=== PATIENT | male | born 1965 | race Caucasian/White ===

== ENCOUNTER 2018-09-21 08:24 | Emergency (ER) | payer OTHER ==
[2018-09-21] MEDS ORDERED: NA CHLORIDE 0.9% 1,000 ML ONE (09:12)
[2018-09-21] MEDS ORDERED: DIAZEPAM 10 MG/2 ML INJ SYRINGE ONE (09:14)
[2018-09-21 09:18] LABS: Absolute Lymphocytes (CBC) 0.9 K/uL (0.7-4.9); Absolute Monocytes 0.4 K/uL (0.1-1.3); Absolute Neutrophil 7.4 K/uL (1.8-8.0); Basophils % 0.4 % (0-1.3); Eosinophils % 0.4 % (0-4.4); Lymphocytes % 10.1 % (15.3-44.8); MCH 30.9 pg (27.0-35.0); MCV 91.1 fL (80-100); MPV 9.5 fL (7.6-11.3); Monocytes % 5.1 % (3.3-12.3); RBC Red Blood Cell Count 4.72 M/uL (4.33-5.43)
[2018-09-21 09:34] LABS: Albumin 3.9 g/dL (3.4-5.0); Bilirubin Direct 0.1 mg/dL (0-0.2); Bilirubin Total 0.4 mg/dL (0.2-1.0); Potassium 3.6 mmol/L (3.5-5.1); Protein, Total 7.1 g/dL (6.4-8.2)
--- NOTE | 2018-09-21 09:40 | RAD REPORT ---
EXAM DESCRIPTION: CT - Stone Protocol - 09/21/2018 9:19 am CLINICAL HISTORY: Abdominal pain, flank pain and back pain COMPARISON: None. TECHNIQUE: Axial 3 mm thick images were obtained without oral or IV contrast. The [id number] span s the entirety of the system including uppermost abdomen and lung bases. Sagittal and coronal refo rmatted images were generated and reviewed. All CT scans are performed using dose optimization technique as appropriate and may include automated exposure control or mA/KV adjustment according to patient size. FINDINGS: No hydronephrosis is present and no obstructing ureteral calculi. No suspicious renal mass es. There is a 12 millimeter round low-density mass in the medial upper right pole of the kidney almo st certainly a benign cyst. Isodense masses and pyelonephritis are not excluded on a stone protocol C T scan. Partially filled urinary bladder shows no suspicious finding. Prostate gland and seminal vesi cles are normal range. Imaged portions of the liver, spleen and pancreas show no suspicious findings on non-contrast imaging . No gallbladder or biliary tree abnormality identified. No suspicious adrenal finding. Liver attenua tion is borderline fatty infiltrated. No suspicious bowel findings. Appendix is normal. Rare diverticula noted. Patient has a very small umbilical hernia. No mass or bulky lymphadenopathy. No free air, free fluid or inflammatory stranding. No significant bony abnormality. Patient has degenerative disc disease at L5-S1. Mild lower lumbar fa cet degenerative changes are present. No acute lung base finding. IMPRESSION: No hydronephrosis, obstructing calculus or acute finding. Small 12 mm low-density mas s upper pole right kidney is almost certainly a benign cyst. Isodense masses and pyelonephritis are not excluded on stone protocol technique. Remainder the study shows no acute or suspicious finding.
--- NOTE | 2018-09-21 10:50 | EDPHYS ---
Physician Documentation [facility] Name: Stan Joshi Age: 52 yrs Sex: Male : 1965 Arrival Date: 09/21/2018 Time: 08:26 Bed 13 Private MD: ED Physician Alfonso Reece HPI: 09/21 08:29 This 52 yrs old Male presents to ER via Unassigned with complaints of right cp side low back pain. 08:29 The patient presents with pain that is acute. The symptoms are located in the right mid cp back and right low back. The pain does not radiate. The problem was sustained mild pain started after drive to [place] 3 days ago. 08:30 Associated signs and symptoms: Pertinent negatives: abdominal pain, chest pain, cp constipation, fever, hematuria, incontinence, numbness, urinary retention, weakness. 08:30 Severity of symptoms: in the emergency department the symptoms have improved, cp moderately. Historical: - Allergies: 08:32 No Known Allergies; ss - Home Meds: 08:35 Crestor oral oral [Active]; rb1 - PMHx: 08:32 High Cholesterol; ss - PSHx: 08:35 None; rb1 - Immunization history:: Adult Immunizations up to date. - Social history:: Smoking status: Patient/guardian denies using tobacco. - Ebola Screening: : Patient denies exposure to infectious person Patient denies travel to an Ebola-affected area in the 21 days before illness onset. ROS: 08:30 Eyes: Negative for injury, pain, redness, and discharge. cp 08:30 Constitutional: Negative for body aches, chills, fever, poor PO intake. 08:30 ENT: Negative for drainage from ear(s), ear pain, sore throat, difficulty swallowing, difficulty handling secretions. 08:30 Cardiovascular: Negative for chest pain, edema, palpitations. 08:30 Respiratory: Negative for cough, shortness of breath, wheezing. 08:30 Abdomen/GI: Negative for abdominal pain, nausea, vomiting, and diarrhea, constipation, black/tarry stool, rectal bleeding, bowel incontinence. 08:30 Back: Positive for pain at rest, pain with movement, of the right mid back and right low back. 08:30 : Negative for urinary symptoms, difficulty urinating, bladder incontinence, testicular pain 08:30 Skin: Negative for cellulitis, rash. 08:30 Neuro: Negative for altered mental status, dizziness, headache, numbness, tingling, weakness. 08:30 All other systems are negative. Exam: 08:35 Constitutional: The patient appears in no acute distress, alert, awake, cp non-diaphoretic, non-toxic, well developed, well nourished. 08:35 Head/Face: Normocephalic, atraumatic. cp 08:35 Eyes: Periorbital structures: appear normal, Conjunctiva: normal, no exudate, no injection, Sclera: no appreciated abnormality, Lids and lashes: appear normal, bilaterally. 08:35 ENT: External ear(s): are unremarkable, Ear canal(s): are normal, clear, TM's: dullness, bilaterally, Nose: is normal, Mouth: Lips: moist, Oral mucosa: pink and intact, moist, Posterior pharynx: is normal, airway is patent, no erythema, no exudate, Voice: is normal. 08:35 Neck: External neck: is normal, ROM/movement: is normal, is supple, without pain, no range of motions limitations, no meningismus, no nuchal rigidity. 08:35 Chest/axilla: Inspection: normal, Palpation: is normal, no crepitus, no tenderness. 08:35 Cardiovascular: Rate: normal, Rhythm: regular, Edema: is not appreciated, JVD: is not appreciated. 08:35 Respiratory: the patient does not display signs of respiratory distress, Respirations: normal, no use of accessory muscles, no retractions, no splinting, no tachypnea, labored breathing, is not present, Breath sounds: are clear throughout, no decreased breath sounds, no stridor, no wheezing. 08:35 Abdomen/GI: Inspection: abdomen appears normal, Bowel sounds: active, all quadrants, Palpation: abdomen is soft and non-tender, in all quadrants, rebound tenderness, is not appreciated, voluntary guarding, is not appreciated, involuntary guarding, is not appreciated. 08:35 Back: pain, that is moderate, of the right mid back and right low back, vertebral tenderness, is not appreciated, Straight leg raises: of both lower extremities does not illicit pain. 08:35 Musculoskeletal/extremity: Exam is negative for bony tenderness, calf tenderness, decreased range of motion, injury, Pulses: noted to be 2+ in the right radial artery, right dorsalis pedis artery, left radial artery and left dorsalis pedis artery. 08:35 Skin: cellulitis, is not appreciated, no rash present. 08:35 Neuro: Orientation: to person, place \T\ time. Mentation: is normal, Cerebellar function: is grossly normal, Motor: moves all fours, strength is normal, Sensation: is normal. 10:40 Neuro: Gait: is steady, at a normal pace, without difficulty. cp Vital Signs: 08:32 BP 145 / 91; Pulse 91; Resp 16; Temp 99.0(O); Pulse Ox 97% on R/A; Weight 83.91 kg; ss Height 5 ft. 10 in. (177.80 cm); Pain 6/10; 09:19 rb1 09:35 BP 128 / 87; Pulse 89; Resp 17; Pulse Ox 99% on R/A; Pain 3/10; rb1 10:35 BP 121 / 87; Pulse 98; Resp 17; Pulse Ox 98% on R/A; rb1 08:32 Body Mass Index 26.54 (83.91 kg, 177.80 cm) ss 09:[address] rb1 MDM: 08:28 Patient medically screened. cp 09:00 Differential diagnosis: sciatica, Herniated disc UTI, kidney stone, cauda equina, cp spinal stenosis. 10:48 Data reviewed: vital signs, nurses notes, lab test result(s), radiologic studies, CT cp scan, and as a result, I will discharge patient. 10:48 Counseling: I had a detailed discussion with the patient and/or guardian regarding: the cp historical points, exam findings, and any diagnostic results supporting the discharge/admit diagnosis, lab results, radiology results, the need for outpatient follow up, a family practitioner, to return to the emergency department if symptoms worsen or persist or if there are any questions or concerns that arise at home. Response to treatment: the patient's symptoms have markedly improved after treatment, VSS. Pain markedly improved with IV meds. Will discharge to home for continued monitoring. 09/21 08:49 Order name: Basic Metabolic Panel; Complete Time: 10:07 cp 09/21 10:08 Interpretation: Normal except: CL 109; GLUC 113; GFR 71. cp 09/21 08:49 Order name: CBC with Diff; Complete Time: 10:07 cp 09/21 10:08 Interpretation: Normal except: MADIHA% 84.0; LYM% 10.1. cp 09/21 08:49 Order name: Creatinine for Radiology; Complete Time: 10:07 cp 09/21 08:49 Order name: Hepatic Function; Complete Time: 10:07 cp 09/21 10:46 Interpretation: Normal except: AST 14. cp 09/21 08:49 Order name: Lipase; Complete Time: 10:07 cp 09/21 08:49 Order name: Urine Microscopic Only cp 09/21 08:49 Order name: IV Saline Lock; Complete Time: 08:59 cp 09/21 08:49 Order name: Labs collected and sent; Complete Time: 09:02 cp 09/21 08:49 Order name: Stone Protocol CT; Complete Time: 10:07 cp 09/21 08:49 Order name: Urine Dipstick-Ancillary (obtain specimen); Complete Time: 10:32 cp 09/21 10:33 Order name: Urine Dipstick--Ancillary (enter results) ds4 Administered Medications: 08:49 CANCELLED (Physician Discretion): Flexeril 10 mg PO once cp 09:10 Drug: NS 0.9% 1000 ml Route: IV; Rate: 1 bolus; Site: left forearm; rb1 10:27 Follow up: IV Status: Completed infusion rb1 09:10 Drug: Diazepam 2 mg Route: IVP; Site: left forearm; rb1 09:40 Follow up: Response: No adverse reaction; Pain is decreased rb1 Disposition: 11:54 Co-signature as Attending Physician, Alfonso Reece MD I agree with the assessment and kdr plan of care. Disposition: 09/21/18 10:49 Discharged to Home. Impression: Low back pain - Right. - Condition is Stable. - Discharge Instructions: Back Pain, Adult, Back Exercises, [id number], Heat Therapy. - Prescriptions for Cyclobenzaprine 10 mg Oral Tablet - take 1 tablet by ORAL route every 8 hours As needed no driving while taking medication; 20 tablet. Diclofenac Sodium 75 mg Oral Tablet, Delayed Release (E.C.) - take 1 tablet by ORAL route 2 times per day; 20 tablet. - Medication Reconciliation Form, Thank You Letter, Antibiotic Education, Prescription Opioid Use form. - Follow up: Private Physician; When: 2 - 3 days; Reason: Recheck today's complaints. - Problem is new. - Symptoms have improved. Signatures: Dispatcher [employer] EDMS Alfonso Reece MD MD [facility] Ayaka Nunes RN RN ss Keyshawn Sy PA PA Jennifer Dennis, RN RN rb1 Corrections: (The following items were deleted from the chart) 08:49 08:49 Flexeril 10 mg PO once ordered. cp cp 11:16 10:49 09/21/2018 10:49 Discharged to Home. Impression: Low back pain - Right. Condition rb1 is Stable. Forms are Medication Reconciliation Form, Thank You Letter, Antibiotic Education, Prescription Opioid Use. Follow up: Private Physician; When: 2 - 3 days; Reason: Recheck today's complaints. Problem is new. Symptoms have improved. cp 09/22 07:07 09/21 10:30 Neuro: Gait: is steady, at a normal pace, without difficulty, cp cp
--- NOTE | 2018-09-21 10:50 | ER ---
Nurse's Notes [facility] Name: Stan Joshi Age: 52 yrs Sex: Male : 1965 Arrival Date: 09/21/2018 Time: 08:26 Bed 13 Private MD: Diagnosis: Low back pain-Right Presentation: 09/21 08:29 Presenting complaint: EMS states: R low back pain that began 3 days ago and was much ss worse this morning. Denies injury. Transition of care: patient was not received from another setting of care. Onset of symptoms was September 18, 2018. Risk Assessment: Do you want to hurt yourself or someone else? Patient reports no desire to harm self or others. Initial Sepsis Screen: Does the patient meet any 2 criteria? No. Patient's initial sepsis screen is negative. Does the patient have a suspected source of infection? No. Patient's initial sepsis screen is negative. Care prior to arrival: Medication(s) given: Toradol 30 mg IVP IV initiated. 20 GA, in the left forearm. 08:29 Method Of Arrival: EMS: [facility] ss 08:29 Acuity: TEETEE 3 ss Historical: - Allergies: 08:32 No Known Allergies; ss - Home Meds: 08:35 Crestor oral oral [Active]; rb1 - PMHx: 08:32 High Cholesterol; ss - PSHx: 08:35 None; rb1 - Immunization history:: Adult Immunizations up to date. - Social history:: Smoking status: Patient/guardian denies using tobacco. - Ebola Screening: : Patient denies exposure to infectious person Patient denies travel to an Ebola-affected area in the 21 days before illness onset. Screenin:35 Abuse screen: Denies threats or abuse. Nutritional screening: No deficits noted. rb1 Tuberculosis screening: No symptoms or risk factors identified. Fall Risk No fall in past 12 months (0 pts). Secondary diagnosis (15 points) impaired mobility, IV access (20 points). Ambulatory Aid- None/Bed Rest/Nurse Assist (0 pts). Gait- Impaired (20 pts.). Mental Status- Oriented to own ability (0 pts). Total Calles Fall Scale indicates High Risk Score (45 or more points). Fall prevention measures have been instituted. Side Rails Up X 2 Placed Close to Nursing Station 1:1 Attendant Assigned Frequent Obs/Assessments Occuring Family Present and informed to notify staff if the need to leave the bedside As available patient and family educated on Fall Prevention Program and Strategies. Assessment: 08:35 General: Appears in no apparent distress. comfortable, Behavior is calm, cooperative. rb1 Pain: Complains of pain in right low back Pain currently is 8 out of 10 on a pain scale. Quality of pain is described as squeezing, Pain began 1 day ago. Neuro: Level of Consciousness is awake, alert, obeys commands, Oriented to person, place, time, situation. Cardiovascular: Capillary refill < 3 seconds is brisk in bilateral fingers. Respiratory: Airway is patent Respiratory effort is even, unlabored, Respiratory pattern is regular, symmetrical. GI: No signs and/or symptoms were reported involving the gastrointestinal system. : No signs and/or symptoms were reported regarding the genitourinary system. Derm: Skin is pink, warm \T\ dry. Musculoskeletal: Range of motion: intact in all extremities. 09:15 Reassessment: pt. went to CT. rb1 09:33 Reassessment: Patient appears in no apparent distress at this time. Patient and/or rb1 family updated on plan of care and expected duration. Pain level reassessed. Patient is alert, oriented x 3, equal unlabored respirations, skin warm/dry/pink. 10:31 Reassessment: Patient appears in no apparent distress at this time. is at bedside. rb1 Patient states symptoms have improved. Vital Signs: 08:32 BP 145 / 91; Pulse 91; Resp 16; Temp 99.0(O); Pulse Ox 97% on R/A; Weight 83.91 kg; ss Height 5 ft. 10 in. (177.80 cm); Pain 6/10; 09:19 rb1 09:35 BP 128 / 87; Pulse 89; Resp 17; Pulse Ox 99% on R/A; Pain 3/10; rb1 10:35 BP 121 / 87; Pulse 98; Resp 17; Pulse Ox 98% on R/A; rb1 08:32 Body Mass Index 26.54 (83.91 kg, 177.80 cm) ss 09:[address] rb1 ED Course: 08:26 Patient arrived in ED. em1 08:28 Keyshawn Sy PA is PHCP. cp 08:28 Alfonso Reece MD is Attending Physician. cp 08:32 Triage completed. ss 08:32 Arm band placed on right wrist. ss 08:35 Patient has correct armband on for positive identification. Bed in low position. Call rb1 light in reach. Side rails up X2. Pulse ox on. NIBP on. Warm blanket given. Pillow given. 08:35 Maintain EMS IV. Dressing intact. Good blood return noted. Site clean \T\ dry. Gauge \T\ rb 1 site: 20 G L FA. 08:37 Jennifer Elizondo, RN is Primary Nurse. rb1 09:02 Lipase Sent. ds4 09:02 Basic Metabolic Panel Sent. ds4 09:02 Hepatic Function Sent. ds4 09:02 CBC with Diff Sent. ds4 09:02 Creatinine for Radiology Sent. ds4 09:[address] via stretcher. cw1 09:17 CT completed. Patient tolerated procedure well. Patient moved back from CT. bq 09:[address] In Process Unspecified. EDMS 10:32 Urine Microscopic Only Sent. ds4 11:15 No provider procedures requiring assistance completed. IV discontinued, intact, rb1 bleeding controlled, No redness/swelling at site. Pressure dressing applied. Administered Medications: 08:49 CANCELLED (Physician Discretion): Flexeril 10 mg PO once cp 09:10 Drug: NS 0.9% 1000 ml Route: IV; Rate: 1 bolus; Site: left forearm; rb1 10:27 Follow up: IV Status: Completed infusion rb1 09:10 Drug: Diazepam 2 mg Route: IVP; Site: left forearm; rb1 09:40 Follow up: Response: No adverse reaction; Pain is decreased rb1 Outcome: 10:49 Discharge ordered by MD. cp 11:15 Discharged to home ambulatory, with family. rb1 11:15 Condition: stable 11:15 Discharge instructions given to patient, Instructed on discharge instructions, follow up and referral plans. medication usage, Demonstrated understanding of instructions, follow-up care, medications, Prescriptions given X 2. 11:16 Patient left the ED. rb1 Signatures: Dispatcher [employer] EDMS Andreina Maya Eric em1 Ayaka Nunes, ASHOK RN Erin Rice cw1 Marlo Solis ds4 Keyshawn Sy PA PA cp Jennifer Elizondo, RN RN rb1
[2018-09-21 11:37] LABS: Urine Bacteria <20 /HPF (NONE SEEN); Urine RBC <5 /HPF (NONE SEEN)
[2018-09-21 11:38] LABS: Urine Culture Reflex Order NOT NEEDED; Urine Mucus 1+ /HPF (NONE SEEN)
[2018-09-21 15:10] LABS: Urine Blood NEGATIVE (NEG); Urine Glucose NEGATIVE (NEG); Urine Protein NEGATIVE (NEG); Urine pH 6.5 (5.0-7.0)
== END 2018-09-21 11:16 | disposition home or self-care (01) ==
LOC: ER 08:24
DX: M54.5 Low back pain (principal); E78.00 Pure hypercholesterolemia, unspecified
CPT/HCPCS: 36415; 74176; 76377; 80048; 80076; 81003; 81015; 83690; 85025; 96361; 96374; 99284; J3360; J7030